=== PATIENT | male | born 1965 | race Caucasian/White ===

== ENCOUNTER 2017-08-17 13:37 | Inpatient (IN) | payer MEDICAID ==
[2017-08-17] MEDS: KETOROLAC 30 MG INJ IM (14:09)
[2017-08-17 14:58] LABS: ADD MAN DIFF? NO
[2017-08-17 15:06] LABS: BASOPHILS % 0.3 % (0.0-2.0); HEMATOCRIT 46.5 % (42.0-52.0); HEMOGLOBIN 15.9 g/dl (14.0-18.0); LYMPHOCYTES # 1.2 10^3/ul (0.8-2.9); LYMPHOCYTES % 8.5 % (15.0-51.0); MEAN CORPUSCULAR HEMOGLOBIN 30.1 pg (29.0-33.0); MEAN CORPUSCULAR HGB CONC 34.2 g/dl (32.0-37.0); MEAN CORPUSCULAR VOLUME 87.9 fl (82.0-101.0); MONOCYTE # 0.7 10^3/ul (0.3-0.9); NEUTROPHILS % 85.8 % (39.0-77.0); PLATELET COUNT 192 10^3/UL (140-415); RED BLOOD COUNT 5.29 10^6/ul (4.70-6.10); RED CELL DISTRIBUTION WIDTH 12.1 % (11.5-14.5)
[2017-08-17 15:06] LABS: WHITE BLOOD COUNT 13.9 10^3/ul (4.8-10.8)
[2017-08-17 15:22] LABS: INR 0.93; PARTIAL THROMBOPLASTIN TIME 25.4 Sec (25.0-35.0); PROTIME 12.5 Sec (11.9-14.9)
[2017-08-17 15:23] LABS: ANION GAP 14 (8-16); BLOOD UREA NITROGEN 17 mg/dl (7-20); CALCIUM 10.1 mg/dl (8.4-10.2); CARBON DIOXIDE 23 mmol/L (21-31); CHLORIDE 109 mmol/L (97-110); CREATININE 1.03 mg/dl (0.61-1.24); GLUCOSE 120 mg/dl (70-220); POTASSIUM 4.3 mmol/L (3.5-5.1); SODIUM 142 mmol/L (135-144)
[2017-08-17 15:57] LABS: TROPONIN-I < 0.010 ng/ml (0.000-0.120)
[2017-08-17] MEDS: DILTIAZEM 25 MG INJ IV (16:43)
[2017-08-17] MEDS: DILTIAZEM 30 MG TAB PO (17:09)
[2017-08-17] MEDS ORDERED: MAGNESIUM HYDROXIDE 30ML CUP PO (18:00)
[2017-08-17] MEDS ORDERED: NITROGLYCERIN (SL) 0.4 MG TAB SL (18:00)
[2017-08-17] MEDS ORDERED: LORAZEPAM 2 MG INJ IV (18:00)
[2017-08-17] MEDS ORDERED: ACETAMINOPHEN 325 MG TAB PO ×2 (18:00)
[2017-08-17] MEDS ORDERED: NACL 0.9% 3 ML SYG IV (18:00)
[2017-08-17] MEDS ORDERED: ONDANSETRON 4 MG INJ IV ×2 (18:00)
[2017-08-17] MEDS ORDERED: HYDROCODONE/APAP (5/325) TAB PO (18:00)
[2017-08-17] MEDS ORDERED: morphine 2 MG INJ IV (18:00)
[2017-08-17] MEDS ORDERED: DOCUSATE SODIUM 100 MG CAP PO (18:00)
[2017-08-17] MEDS ORDERED: METOPROLOL 5 MG INJ IV (19:30)
[2017-08-17 21:11] LABS: CREATINE KINASE 241 IU/L (23-200)
[2017-08-17 21:23] LABS: CK INDEX 0.9
[2017-08-17 21:25] LABS: CK-MB 2.06 ng/ml (0.0-2.4); TROPONIN-I < 0.010 ng/ml (0.000-0.120)
[2017-08-17] MEDS: LIDOCAINE 5% PATCH TD (21:45)
[2017-08-17] MEDS: METOPROLOL 25 MG TAB PO (21:46)
[2017-08-18 03:50] LABS: ADD MAN DIFF? NO
[2017-08-18 04:22] LABS: CREATINE KINASE 244 IU/L (23-200)
[2017-08-18 04:23] LABS: BASOPHILS % 0.5 % (0.0-2.0); EOSINOPHILS % 0.5 % (0.0-7.0); HEMATOCRIT 43.9 % (42.0-52.0); HEMOGLOBIN 14.8 g/dl (14.0-18.0); LYMPHOCYTES # 2.2 10^3/ul (0.8-2.9); LYMPHOCYTES % 25.3 % (15.0-51.0); MEAN CORPUSCULAR HEMOGLOBIN 30.5 pg (29.0-33.0); MEAN CORPUSCULAR HGB CONC 33.7 g/dl (32.0-37.0); MEAN CORPUSCULAR VOLUME 90.3 fl (82.0-101.0); MEAN PLATELET VOLUME 12.2 fl (7.4-10.4); MONOCYTE # 0.7 10^3/ul (0.3-0.9); MONOCYTES % 8.6 % (0.0-11.0); NEUTROPHIL # 5.6 10^3/ul (1.6-7.5); NEUTROPHILS % 64.8 % (39.0-77.0); PLATELET COUNT 192 10^3/UL (140-415); RED BLOOD COUNT 4.86 10^6/ul (4.70-6.10); RED CELL DISTRIBUTION WIDTH 12.1 % (11.5-14.5)
[2017-08-18 04:23] LABS: WHITE BLOOD COUNT 8.6 10^3/ul (4.8-10.8)
[2017-08-18 04:24] LABS: ANION GAP 10 (8-16); BLOOD UREA NITROGEN 19 mg/dl (7-20); CALCIUM 9.2 mg/dl (8.4-10.2); CARBON DIOXIDE 28 mmol/L (21-31); CHLORIDE 108 mmol/L (97-110); CREATININE 1.05 mg/dl (0.61-1.24); GLUCOSE 102 mg/dl (70-220); MAGNESIUM 2.2 mg/dl (1.7-2.5); POTASSIUM 4.4 mmol/L (3.5-5.1); SODIUM 142 mmol/L (135-144)
[2017-08-18 04:32] LABS: CK INDEX 0.7
[2017-08-18 04:33] LABS: CK-MB 1.73 ng/ml (0.0-2.4); TROPONIN-I < 0.010 ng/ml (0.000-0.120)
[2017-08-18] MEDS: PANTOPRAZOLE (EC) 40 MG TAB PO (05:26)
[2017-08-18] MEDS: ASPIRIN 81 MG TAB PO (08:48)
[2017-08-18] MEDS: LIDOCAINE 5% PATCH TD (08:49)
[2017-08-18] MEDS: METOPROLOL 25 MG TAB PO (08:49)
== END 2017-08-18 12:40 | disposition home or self-care (01) | DRG 310 ==
LOC: FTE 13:37 → TEL 17:34
DX: I48.91 Unspecified atrial fibrillation (principal); R07.9 Chest pain, unspecified; M25.551 Pain in right hip
CPT/HCPCS: 36415; 71045; 73510; 80048; 82550; 82553; 83735; 84443; 84484; 85025; 85610; 85730; 93005; 93306; 96372; 96374; 99285-25